=== PATIENT | female | born 1990 | race Two or more races ===

== ENCOUNTER 2022-10-23 22:05 | Emergency (ER) | payer SELFPAY ==
[2022-10-23] MEDS ORDERED: hydrOXYzine HCl 25 MG Tab PO ONE (22:56)
[2022-10-23 23:22] LABS: BASOPHILS ABSOLUTE AUTO 0.02 K/mm3 (0.01-0.08); BASOPHILS PERCENT AUTO 0.2 % (0.1-1.2); EOSINOPHILS ABSOLUTE AUTO 0.13 K/mm3 (0.04-0.36); EOSINOPHILS PERCENT AUTO 1.4 (0.7-5.8); HEMOGLOBIN 10.2 gm/dl (11.2-15.7); IMMATURE GRAN ABSOLUTE AUTO 0.02 K/mm3 (0.00-0.10); IMMATURE GRAN PERCENT AUTO 0.2 % (<=1.0); LYMPHOCYTES ABSOLUTE AUTO 2.03 K/mm3 (1.18-3.74); LYMPHOCYTES PERCENT AUTO 21.9 % (19.3-51.7); MEAN CORPUSCULAR HEMOGLOBIN 30.1 pg (25.6-32.2); MEAN CORPUSCULAR HGB CONC 31.9 g/dl (32.2-35.5); MEAN CORPUSCULAR VOLUME 94.4 fl (79.4-94.8); MEAN PLATELET VOLUME 9.5 fl (9.4-12.3); MONOCYTES ABSOLUTE AUTO 0.43 K/mm3 (0.24-0.36); MONOCYTES PERCENT AUTO 4.6 % (4.7-12.5); NEUTROPHILS ABSOLUTE AUTO 6.64 K/mm3 (1.56-6.13); NEUTROPHILS PERCENT AUTO 71.7 % (34.0-71.1); PLATELET COUNT,PLT 232 K/mm3 (182-369); RED BLOOD CELL COUNT 3.39 M/mm3 (3.98-5.22); WHITE BLOOD CELL COUNT,WBC 9.27 K/mm3 (3.98-10.04)
[2022-10-24] LABS: A/G RATIO 0.6 (1-2); ALBUMIN 2.5 g/dl (3.4-5.0); ANION GAP 12.7 (5-15); BILIRUBIN TOTAL 0.3 mg/dL (0.2-1.0); CALCIUM 9.2 mg/dL (8.5-10.1); CREATININE 0.6 mg/dL (0.55-1.02); EST CRCL DRUG DOSING (CG) 106.46 mL/min; MAGNESIUM 1.9 mg/dL (1.8-2.4); POTASSIUM,K 3.7 mEq/L (3.5-5.1); PROTEIN TOTAL,TP 6.8 g/dl (6.4-8.2); T4 FREE 0.84 ng/dL (0.76-1.46); TSH 1.678 uIU/mL (0.358-3.74)
[2022-10-24 00:47] LABS: APPEARANCE,URINE SLT CLOUDY (Clear); BILIRUBIN,URINE NEGATIVE (Negative); COLOR,URINE YELLOW (Yellow); GLUCOSE,URINE NEGATIVE (Negative); KETONES,URINE 1+ (Negative); LEUKOCYTE ESTERASE,URINE NEGATIVE (Negative); NITRITE,URINE NEGATIVE (Negative); OCCULT BLOOD,URINE NEGATIVE (Negative); PH,URINE 6.5 (5.0-8.0); PROTEIN,URINE NEGATIVE (Negative)
== END 2022-10-24 03:44 | disposition home or self-care (01) ==
LOC: JD.ED 22:05
DX: O99.342 Other mental disorders complicating pregnancy, second trimester (principal); F41.9 Anxiety disorder, unspecified
CPT/HCPCS: 36415; 80053; 81003; 83735; 84439; 84443; 85025; 93005; 99283; A9270

== ENCOUNTER 2023-01-29 09:38 | Inpatient (IN) | payer SELFPAY ==
[~2023-01-29 09:38] MED LIST: ePHEDrine 50 MG/ML SDV ONE
[2023-01-29] MEDS ORDERED: Ondansetron 4 MG/2 ML SDV IVPUSH PRN (09:46)
[2023-01-29] MEDS ORDERED: Calcium Carbonate 500 MG Tab.Chew PO PRN (09:46)
[2023-01-29] MEDS ORDERED: Sodium Chloride 0.9% 10 ML Syringe FLUSH PRN (09:46)
[2023-01-29] MEDS ORDERED: Nalbuphine HCl 10 MG/ 1ML Amp IVPUSH PRN (09:46)
[2023-01-29] MEDS ORDERED: Lidocaine 1% 50 ML MDV INJECT PRN (09:54)
[2023-01-29] MEDS ORDERED: Oxytocin/Lactated Ringers 10 UNIT/1,000 ML BAG IV SCH ×2 (10:00→13:15)
[2023-01-29 10:08] LABS: BASOPHILS PERCENT AUTO 0.2 % (0.0-1.0); EOSINOPHILS PERCENT AUTO 0.2 % (0.0-6.0); HEMATOCRIT 37.1 % (37.0-47.0); IMMATURE GRAN ABSOLUTE AUTO 0.04 K/mm3 (0.00-0.05); IMMATURE GRAN PERCENT AUTO 0.4 % (0.0-0.4); LYMPHOCYTES ABSOLUTE AUTO 1.6 K/mm3 (1.0-4.8); LYMPHOCYTES PERCENT AUTO 18.1 % (24.0-44.0); MEAN CORPUSCULAR HEMOGLOBIN 31.2 pg (28.0-32.0); MEAN CORPUSCULAR HGB CONC 33.2 g/dl (32.0-36.0); MEAN CORPUSCULAR VOLUME 94.2 fl (83.0-99.0); MEAN PLATELET VOLUME 9.4 fl (9.4-12.3); MONOCYTES ABSOLUTE AUTO 0.4 K/mm3 (0.0-0.8); MONOCYTES PERCENT AUTO 4.2 % (0.0-8.0); NEUTROPHILS ABSOLUTE AUTO 6.9 K/mm3 (1.8-7.7); NEUTROPHILS PERCENT AUTO 76.9 % (41.0-71.0); PLATELET COUNT,PLT 179 K/mm3 (150-400); RED BLOOD CELL COUNT 3.94 M/mm3 (4.10-5.30); WHITE BLOOD CELL COUNT,WBC 8.99 K/mm3 (3.9-11.3)
[2023-01-29 10:17] LABS: HEMOGLOBIN 12.3 gm/dl (12.0-16.0)
[2023-01-29] MEDS: Lactated Ringers 1,000 ML IV SCH ×3 (10:40→12:46)
[2023-01-29] MEDS ORDERED: diphenhydrAMINE 50 MG/ML SDV IVPUSH PRN (11:00)
[2023-01-29] MEDS ORDERED: fentaNYL 100 MCG/2 ML SDV EPIDUR PRN (11:00)
[2023-01-29] MEDS ORDERED: Bupivacaine/fentaNYL/NS 100 ML Bag EPIDUR PRN (11:00)
[2023-01-29] MEDS: ePHEDrine 50 MG/ML SDV IVPUSH PRN ×2 (12:37→12:44)
[2023-01-29] MEDS ORDERED: Phenylephrine 1% 10 MG/ML SDV IVPUSH PRN (14:38)
[2023-01-29] MEDS ORDERED: Tranexamic Acid 1,000 MG/10 ML Vial ONE (17:03)
[2023-01-29] MEDS ORDERED: HYDROmorphone 0.5 MG/0.5 ML Syringe ONE (17:10)
[2023-01-29] MEDS ORDERED: Phenylephrine 1% 10 MG/ML SDV ONE (18:00)
[2023-01-29] MEDS ORDERED: Benzocaine/Menthol 20%-0.5% Spray 78 GM Cannister TOP PRN (18:03)
[2023-01-29] MEDS ORDERED: Acetaminophen 325 MG Tab PO PRN (18:03)
[2023-01-29] MEDS ORDERED: Methylergonovine 0.2 MG/1 ML Amp IM PRN (18:03)
[2023-01-29] MEDS ORDERED: Docusate Sodium 100 MG Cap PO PRN (18:03)
[2023-01-29] MEDS ORDERED: Famotidine 20 MG Tab PO PRN (18:03)
[2023-01-29] MEDS ORDERED: Witch Hazel Medicated Pads 40/Jar TOP PRN (18:03)
[2023-01-29] MEDS ORDERED: Misoprostol 200 MCG Tab BUCCAL PRN (18:03)
[2023-01-29] MEDS ORDERED: Oxytocin 10 Units/1 ML SDV IV ONE (18:07)
[2023-01-29] MEDS ORDERED: HYDROmorphone 0.5 MG/0.5 ML Syringe IVPUSH ONE (18:07)
[2023-01-29] MEDS: Ibuprofen 600 MG Tab PO PRN (18:35)
[2023-01-29 19:04] LABS: HEMATOCRIT 32.2 % (37.0-47.0); HEMOGLOBIN 10.9 gm/dl (12.0-16.0); MEAN CORPUSCULAR HGB CONC 33.9 g/dl (32.0-36.0); MEAN CORPUSCULAR VOLUME 94.4 fl (83.0-99.0); MEAN PLATELET VOLUME 9.6 fl (9.4-12.3); PLATELET COUNT,PLT 164 K/mm3 (150-400); RED BLOOD CELL COUNT 3.41 M/mm3 (4.10-5.30); WHITE BLOOD CELL COUNT,WBC 20.01 K/mm3 (3.9-11.3)
[2023-01-29 19:34] LABS: INR 1.05; PROTHROMBIN TIME 11.2 SECONDS (9.7-12.0)
[2023-01-29 19:36] LABS: PTT,PARTIAL THROMBOPLSTIN TIME 27.4 SECONDS (21.7-31.4)
[2023-01-29] MEDS ORDERED: Sodium Chloride 0.9% 10 ML Syringe FLUSH SCH (21:00)
[2023-01-30] MEDS: Ibuprofen 600 MG Tab PO PRN (04:24)
[2023-01-30 06:25] LABS: HEMATOCRIT 27.2 % (37.0-47.0); MEAN CORPUSCULAR HEMOGLOBIN 31.5 pg (28.0-32.0); MEAN CORPUSCULAR HGB CONC 33.1 g/dl (32.0-36.0); MEAN CORPUSCULAR VOLUME 95.1 fl (83.0-99.0); MEAN PLATELET VOLUME 10.1 fl (9.4-12.3); PLATELET COUNT,PLT 152 K/mm3 (150-400); RED BLOOD CELL COUNT 2.86 M/mm3 (4.10-5.30); WHITE BLOOD CELL COUNT,WBC 12.49 K/mm3 (3.9-11.3)
[2023-01-30] MEDS ORDERED: Ferrous Sulfate 324 MG Tab.EC PO SCH (07:00)
[2023-01-30] MEDS ORDERED: Prenatal Multivitamin with Calcium/Folic Acid/Iron Tab PO SCH (09:00)
== END 2023-01-30 19:40 | disposition home or self-care (01) | DRG 806 ==
LOC: JD.OBCHECK 09:38 → JD.OB 09:40 → JD.OBCHECK 09:47 → JD.OB 09:47 → OBSVTOIN 16:45 → JD.OB 16:46
PROVIDERS: ADMIT Family Medicine; ATTEND Family Medicine
PROC: 10E0XZZ Delivery of Products of Conception, External Approach (ICD-10-PCS; principal; 2023-01-29)
PROC: 3E0R3BZ Introduction of Anesthetic Agent into Spinal Canal, Percutaneous Approach (ICD-10-PCS; 2023-01-29)
PROC: 00HU33Z Insertion of Infusion Device into Spinal Canal, Percutaneous Approach (ICD-10-PCS; 2023-01-29)
DX: O48.0 Post-term pregnancy (principal); O72.1 Other immediate postpartum hemorrhage; Z37.0 Single live birth; O99.02 Anemia complicating childbirth; D64.9 Anemia, unspecified; K21.9 Gastro-esophageal reflux disease without esophagitis; O99.62 Diseases of the digestive system complicating childbirth; O77.0 Labor and delivery complicated by meconium in amniotic fluid; O76 Abnormality in fetal heart rate and rhythm complicating labor and delivery; O99.214 Obesity complicating childbirth; Z87.891 Personal history of nicotine dependence; Z3A.40 40 weeks gestation of pregnancy; Z79.899 Other long term (current) drug therapy
CPT/HCPCS: 36415; 51702; 59025; 59409; 85025; 85027; 85384; 85610; 85730; 86592; A9270-GY; J1170; J2210; J2371; J2590; J3010; J3490; J7120